=== PATIENT | female | born 1995 | race Caucasian/White ===

== ENCOUNTER → 2018-07-22 17:04 | Observation (INO) ==
--- NOTE | 2018-07-22 17:03 | OB/GYN Progress Note ---
Date of Encounter: 07/22/18 Time of Encounter: 16:58 - Assessment and Plan (1) 38 weeks gestation of Current Visit: Yes Status: Acute (2) Uterine contractions Current Visit: Yes Status: Acute No change on serial cervical exams over 4 hours. Discharged home with labor and when to return to triage precautions. Patient verbalizes understanding and in agreement with plan Subjective - Subjective Interval history: 38+0 weeks gestation presents to triage for complaints of contractions. Patient states she began having contractions at 6:00 this morning increasing in intensity came to triage for evaluation. Reports good movement, denies vaginal bleeding or leaking of fluid. Antepartum ROS: movement normal, contractions, no loss of fluid, no vaginal bleeding Objective - Vital Signs Vital Signs: Intake and Output 07/22/18 07/22/18 07/22/18 07:59 15:59 23:59 Other: Weight 75.705 kg Patient Weight 07/22/18 23:59 Weight 75.705 kg - Exam FHR: auscultation normal FHR comments: Baseline 120 Abdomen: Present: soft, gravid Cervical dilation: /-2
== END | disposition home or self-care (01) ==
LOC: 1NENULAB
PROVIDERS: ADMIT Advanced Practice Midwife; ATTEND Advanced Practice Midwife

== ENCOUNTER 2018-07-28 22:38 | Inpatient (IN) ==
[2018-07-28] MEDS ORDERED: *HR* Nalbuphine 10 MG/ML AMPUL IVP PRN (22:44)
[2018-07-28] MEDS ORDERED: Famotidine 20 MG/2 ML VIAL IVP PRN (22:44)
[2018-07-28] MEDS ORDERED: Ondansetron 4 MG/2 ML VIAL IVP PRN (22:44)
[2018-07-28] MEDS ORDERED: Metoclopramide 10 MG/2 ML VIAL IVP PRN (22:44)
[2018-07-28] MEDS ORDERED: Lidocaine 1% 20 ML MDV INFILT PRN (22:44)
[2018-07-28] MEDS ORDERED: Naloxone 0.4 MG/ML INJ IVP PRN (22:44)
[2018-07-28] MEDS ORDERED: Ringers Solution, Lactated 1,000 ML IVC SCH (22:45)
[2018-07-28] MEDS ORDERED: Oxytocin 20 units/ LR 1000 mL 20 UNIT/1,000 ML BAG IVC SCH (22:45)
[2018-07-28 23:22] LABS: Basophils % 0.4 %; Eosinophils % 0.1 %; Hematocrit 30.2 % (35.3-44.9); Hemoglobin 9.5 g/dL (11.5-15.4); Immature Granulocytes % 0.3 % (0-4); Lymphocytes % 24.4 %; Mean Corpuscular HGB Conc 31.5 g/dL (31.6-35.5); Mean Corpuscular Hemoglobin 24.3 pg (28.0-33.3); Mean Corpuscular Volume 77.2 fL (83.0-100.0); Mean Platelet Volume 10.9 fL (9.4-12.4); Monocytes # 0.5 K/mcL (0.0-1.3); Monocytes % 6.4 %; Neutrophils # 5.5 K/mcL (1.6-8.9); Platelet Count 227 K/mcL (140-400); Red Blood Count 3.91 M/mcL (3.82-4.97); Red Cell Distribution Width 14.3 % (11.5-14.5); Segmented Neutrophils % 68.4 %
[2018-07-28 23:31] LABS: Amphetamine Screen,Urine Negative ng/mL (Cutoff=1000); Barbiturate Screen,Urine Negative ng/mL (Cutoff=200); Benzodiazepines Screen,Urine Negative ng/mL (Cutoff=200); Cannabinoid Screen,Urine Negative ng/mL (Cutoff = 50); Cocaine Screen,Urine Negative ng/mL (Cutoff= 300); Opiate Screen,Urine Negative ng/mL (Cutoff=300); Phencyclidine Screen,Urine Negative ng/mL (Cutoff=25)
--- NOTE | 2018-07-29 00:36 | OB/GYN History & Physical ---
Date of Encounter: 07/29/18 Time of Encounter: 00:34 Assessment and Plan (1) 39 weeks gestation of Current visit: Yes Status: Acute (2) Anemia affecting in third trimester Current visit: Yes Status: Acute (3) Encounter for planned induction of labor Current visit: Yes Status: Acute Pitocin induction underway. Epidural when desires. EFM in anticipation of vaginal delivery History of Present Illness HPI: Ms. Tse is a 23 year old female G 3 P 2-0-0-2 at 39 0/7 weeks admitted for induction of labor at term. She denies any contractions, vaginal bleeding, or leaking fluid. She reports good movement. Her is without complications Past Med Surg Social Fam HX - Past Medical History Source: patient Medical history: no medical history Psychiatric history: no psych history - Past Surgical History Surgical History: other Additional surgical history: wisdom teeth extraction - Social History Smoking Status: Never smoker Smokeless Tobacco Status: No Alcohol use: none Drug use: none Current living situation: Home - Independent - Family History Mother Living Status: Still Living Hx Family Cardiac Disorders: No Hx Family Respiratory Disorders: No Hx Family Cancer: Yes Hx Family GI Disorders: No Hx Family Genitourinary Disorders: No Hx Family Endocrine Disorder: No Hx Family Musculoskeletal Disorders: No Hx Family Neuromuscular Disorders: No Hx Family Neurologic Disorders: No Hx Family HEENT Disorders: No Hx Family Autoimmune Disorders: No Hx Family Reproductive Disorders: No Hx Family Psychosocial Disorders: No Hx Family Medical Disorders: No Obstetrical History - Pregnancies : 3 Para: 2 Term: 2 : 0 Ab's: 0 Livin Medications and Allergies Vit/Iron Fumarate/FA [ Tablet] 1 each PO DAILY #30 tablet 08/06/16 [Rx] Allergy/AdvReac Type Severity Reaction Status Date / Time No Known Allergies Allergy Verified 07/28/18 23:23 Review of System OB All systems PM: reviewed and no additional remarkable complaints except as stated - Constitutional Constitutional ROS IM: no chills, no fatigue, no fever(s) - Gastrointestinal Gastrointestinal: no nausea, no vomiting - Menstruation Menstruation: amenorrhea Exam - Constitutional Constitutional: well developed, well nourished, no acute distress, average body habitus - HEENT HEENT: EOMI - Lungs Respiratory exam: CTAB - Cardiovascular Cardiovascular exam: RRR - Abdomen Abdomen: Present: bowel sounds normal, gravid, non tender - Vulva Vulva: bilateral: normal - Cervix Dilation: 3 Effacement: 70 Station: -3 - Comments Comments: Eitan's 6.5 lbs and cephalic presentation Results Result Diagrams: 07/28/18 23:00 Abnormal lab results Hgb 9.5 g/dL (11.5-15.4) L 07/28/18 23:00 Hct 30.2 % (35.3-44.9) L 07/28/18 23:00 MCV 77.2 fL (83.0-100.0) L 07/28/18 23:00 MCH 24.3 pg (28.0-33.3) L 07/28/18 23:00 MCHC 31.5 g/dL (31.6-35.5) L 07/28/18 23:00 All other labs normal. - VTE Reasons for not Prescribing Prophylaxis: Treatment not Indicated - Low risk for VTE
--- NOTE | 2018-07-29 01:37 | OB Labor Progress Note ---
Date of Encounter: 07/29/18 Time of Encounter: 01:35 Labor Progress Note - Subjective Subjective: Patient is getting more uncomfortable with the contractions. - Cervix Cervix: 4/70/-3 - Heart Tones Heart Tones: 127 baseline, category 1 - [place]: q 3-4 minutes - Interventions Interventions: AROM with clear fluid - Plan Plan: Continue with pitocin induction
[2018-07-29] MEDS ORDERED: Epidural Premix (fent/bupiv) 110 ML EP ONE (02:28)
[2018-07-29] MEDS ORDERED: *HR* FentaNYL (PF) 100 MCG/2 ML VIAL ONE (02:30)
[2018-07-29] MEDS ORDERED: *HR* Ropivacaine/PF 0.2% 20 ML VIAL ONE (02:31)
--- NOTE | 2018-07-29 02:58 | Anesthesia Evaluation PreOp ---
Date of Encounter: 07/29/18 Time of Encounter: 02:56 - Past History Planned Operation: tameka Cardiac History: Denies any Significant Hx Pulmonary History: Denies Any Significant HX MANAGER PRODUCT History: Denies Any Significant HX Other Medical History: Denies Any Significant HX Anesthesia History: No Prior Anesthetic Complications : Yes (39 weeks, ) Alcohol Use: none Drug use: none Medications and Allergies Vit/Iron Fumarate/FA [ Tablet] 1 each PO DAILY #30 tablet 08/06/16 [Rx] Allergy/AdvReac Type Severity Reaction Status Date / Time No Known Allergies Allergy Verified 07/28/18 23:23 - Meds/Allergy Pre-op Review Medications Reviewed: Yes Allergies Reviewed: Yes Beta Blockers on Current Med List: No Anesthesia Results - Labs 07/28/18 23:00 Anesthesia Exam O2 Sat Height 1.63 m Weight 74.5 kg Height: 64 Weight: 74 - HEENT Pupil (Motor): Pupils equal Mallampati: II Teeth: Normal Oral Opening: Greater than 3 - MANAGER PRODUCT LOC: Oriented MANAGER PRODUCT Motor: Normal RUE, Normal LUE, Normal RLE, Normal LLE, Normal Face MANAGER PRODUCT Sensory: Normal: RUE, LUE, RLE, LLE, Face - Cardiac Rhythm: Regular Murmur: None JVD: No Carotid Bruit: No - Pulmonary Breath Sounds: bilateral Clear Respiratory Effort: Symmetrical Anesthesia Assess/Plan ASA Score: 2 Level of consciousness: Cooperative Anesthetic Plan: Epidural Monitoring Plan: Standard Monitors Recovery Plan: PACU
[2018-07-29] MEDS ORDERED: Epidural Premix (fent/bupiv) 110 ML EP SCH (03:00)
--- NOTE | 2018-07-29 03:04 | Anesthesia Procedures ---
Date of Encounter: 07/29/18 Time of Encounter: 03:00 Procedures: Anesthesia - Epidural/Spinal Patient ID/Chart reviewed: Yes Patient examined: Yes OB Eval: Contractions: Non-stressed pattern Consent Obtained: Yes Supplemental Oxygen: None/Room Air Site Prep: Aseptic Technique Patient position: upright Local Anesthetic: Lidocaine 1% Amount of Local Anesthetic used: 3 Touhy Needle Gauge: 18 Touhy Needle Depth (cm): 4 Catheter Depth at Skin (cm): 10 Test Dose (1.5% Lido + Epi): Volume given (mls): 3 Test Dose Result: Negative Loading Dose: Fentanyl (mcg): 100 Loading Dose: Other: 7ml 0.2% ropivicaine Loading Dose Administered: Thru Touhy Needle Infusion Med: 0.125% Bupivacaine w/ 2 mcg/ml Fentanyl Infusion Rate (mls/hr): [address]: Tegaderm Interspace Used: L3-L4 Loss of Resistance (TUYET): Yes Blood: No CSF: No Paresthesia: No Procedure: strict asepsis, one attempt, good TUYET, no parasthesias, no heme, no CSF. FHR unchanged, VS per RN
--- NOTE | 2018-07-29 06:52 | OB/GYN Procedure Note ---
Delivery - Delivery Date: 07/29/18 Provider: Arcelia Akins Intrapartum events: none Delivery induction: AROM Delivery monitor: external FHT, external uterine Anesthesia: epidural Quantitated Blood Loss: 300 - Infant (s) Infant A Delivery Date: 07/29/18 Infant Delivery Time: 06:16 Presentation: vertex Position: DENEEN Route of delivery: Gender: Male Viability: Viable Pounds: 6 Ounces: 13 Weight Gram: 3.09 kg at 1 minute: 8 at 5 mins: 9 Shoulder Dystocia: not encountered Specimens collected: cord blood Placenta: spontaneous Cord: 3 umbilical vessels - Repair Episiotomy: none Laceration Description: None - Complications Delivery complications: none Delivery comments: Called to room with patient complete and +2 station. Under maternal effort she delivered a viable male weighing 6 lbs. 13 oz. and Apgars 8 and 9 at one and 5 minutes respectively were intact perineum. Following delivery of the head, there is no nuchal cord or shoulder dystocia encountered. The remainder the delivered with maternal effort. was placed on mom's abdomen and cord was allowed to cease pulsations. The umbillical cord was double clamped and cut with assistance from the father. Placenta delivered spontaneously, complete, and intact with a three-vessel cord. There were no vaginal, perineal, or labial lacerations on exam. Mother and recovering in the LDR in stable conditio n.. - Disposition Mom disposition: stable in LDR disposition: stable in LDR
[2018-07-29] MEDS ORDERED: Oxytocin 20 units/ LR 1000 mL 20 UNIT/1,000 ML BAG IVC SCH (09:12)
[2018-07-29] MEDS ORDERED: Oxytocin 20 units/ LR 1000 mL 20 UNIT/1,000 ML BAG IVC ONE (09:12)
[2018-07-29] MEDS ORDERED: Measles/Mumps/Rubella Vacc 0.5 ML VIAL SQ PRN (09:12)
[2018-07-29] MEDS: Prenatal Vit/FA 1 EACH TABLET PO SCH (10:15)
[2018-07-29] MEDS: Acetaminophen 325 MG TABLET PO PRN ×2 (10:15→23:47)
[2018-07-29] MEDS: Ibuprofen 600 MG TABLET PO PRN (19:48)
[2018-07-30] MEDS: Ibuprofen 600 MG TABLET PO PRN (07:52)
[2018-07-30] MEDS: Prenatal Vit/FA 1 EACH TABLET PO SCH (07:53)
[2018-07-30 08:19] VITALS: BP 114/74
--- NOTE | 2018-07-30 11:50 | Discharge Summary ---
Date of Encounter: 07/30/18 Time of Encounter: 11:47 - Discharge Diagnosis (1) Vaginal delivery Priority: Primary Status: Acute Comments: Feeling well Tolerating regular diet Pain well-controlled with by mouth pain meds Ambulating independently Voiding independently Lochia light Passing flatus, no BM yet Vital signs stable Discharge to guest today (2) Breast feeding status of mother Priority: Secondary Status: Acute Comments: Community resources provided (3) Acute blood loss anemia Priority: Secondary Status: Acute Comments: Continue iron supplementation daily - Discharge Medications Prescriptions: New Ferrous Sulfate 325 mg PO DAILY #30 tablet Acetaminophen [Tylenol] 650 mg PO Q6HR PRN tablet PRN Reason: Mild Pain Ibuprofen [Motrin] 600 mg PO Q6HR PRN #30 tablet PRN Reason: Cramping Docusate [Colace] 100 mg PO BID #30 capsule Continued Vit/Iron Fumarate/FA [ Tablet] 1 each PO DAILY #30 tablet Home Medications: Vit/Iron Fumarate/FA [ Tablet] 1 each PO DAILY #30 tablet 08/06/16 [Rx] Acetaminophen [Tylenol] 650 mg PO Q6HR PRN tablet 07/30/18 [Rx] Docusate [Colace] 100 mg PO BID #30 capsule 07/30/18 [Rx] Ferrous Sulfate 325 mg PO DAILY #30 tablet 07/30/18 [Rx] Ibuprofen [Motrin] 600 mg PO Q6HR PRN #30 tablet 07/30/18 [Rx] Allergies/Adverse Reactions: Allergy/AdvReac Type Severity Reaction Status Date / Time No Known Allergies Allergy Verified 07/28/18 23:23 Data Procedures and tests throughout hospitalization: Laboratory Tests 07/28/18 07/28/18 23:00 23:00 WBC 8.0 RBC 3.91 Hgb 9.5 L Hct 30.2 L MCV 77.2 L MCH 24.3 L MCHC 31.5 L RDW 14.3 Plt Count 227 MPV 10.9 Immature Gran % 0.3 Seg Neutrophils % 68.4 Lymphocytes % 24.4 Monocytes % 6.4 Eosinophils % 0.1 Basophils % 0.4 Neutrophils # 5.5 Lymphocytes # 2.0 Monocytes # 0.5 Eosinophils # 0.0 Basophils # 0.0 Urine Opiates Screen Negative Ur Barbiturates Screen Negative Ur Phencyclidine Scrn Negative Ur Amphetamines Screen Negative U Benzodiazepines Scrn Negative Urine Cocaine Screen Negative U Marijuana (THC) Screen Negative Ur Drug Screen Interp See Below Date of admission: 07/28/18 22:38 Primary care physician: PCP NONE Consults: 07/29/18 09:12 Consult to [facility] [place] [CONS] Routine Comment: Vaginal delivery, consult needed Discharging clinician: Tiffany Mak Anticipated date of discharge: 07/30/18 - Patient Status Disposition: Home, Self-Care Condition: Good Functional capacity at discharge: independent ambulation Overall status at discharge: patient is progressing back to baseline - Discharge Instructions Follow Up With: NONE,PCP [Primary Care Provider] - Arcelia Akins DO [Partnered Physician] - - Diet and Activity Activity: increase activity as tolerated Diet: regular diet Hospital Course Reason for admission: induction of labor, IUP at term Delivery: Episiotomy: none Laceration: none Other procedures: none complications: none Discharge diagnosis: IUP at term delivered baby: male Time Attestation: Total time spent providing and/or coordinating discharge services: Time Spent: Less than 30 minutes Exam - Constitutional Vitals: Temp Pulse Resp BP Pulse Ox 97.1 F L 58 16 114/74 100 07/30/18 08:18 07/30/18 08:18 07/30/18 08:18 07/30/18 08:18 07/29/18 19:45 General appearance IM: A&O X 3, pleasant, no acute distress, answers questions appropriately - Respiratory Respiratory exam: Present: CTAB - Cardiovascular Cardiovascular exam IM: Present: RRR, +S1, +S2 - GI/Abdominal GI/Abdominal exam IM: normal bowel sounds, no peritoneal signs - Rectal Rectal exam: deferred - Uterine Tone: Firm Uterus Position: 2 Fingers Below Umbilicus, Midline - Extremities Exam Extremities exam IM: Present: full ROM, normal capillary refill, normal inspection, radial pulses palpable and symmetrical - Neurological Exam Neurological exam: alert, CN II-XII intact, normal gait, oriented X3, reflexes normal, no focal deficits, strengths equal and symetr throughout - Psychiatric Additional comments: Signs and symptoms of depression discussed with patient and she verbalizes understanding of when to seek help
== END 2018-07-30 16:10 | disposition home or self-care (01) | DRG 806 ==
LOC: 1NENULAB 22:38 → 1NENUOBS 07-29 09:13
PROVIDERS: ADMIT Obstetrics & Gynecology; ATTEND Obstetrics & Gynecology

== ENCOUNTER 2019-09-01 08:00 | Inpatient (IN) ==
[2019-09-01] MEDS ORDERED: Oxytocin 20 units/ LR 1000 mL 20 UNIT/1,000 ML BAG IVC SCH ×2 (09:15→18:40)
[2019-09-01] MEDS ORDERED: Famotidine 20 MG/2 ML VIAL IVP PRN (09:15)
[2019-09-01] MEDS ORDERED: Metoclopramide 10 MG/2 ML VIAL IVP PRN (09:15)
[2019-09-01] MEDS ORDERED: Naloxone 0.4 MG/ML INJ IVP PRN (09:15)
[2019-09-01 10:07] LABS: Basophils % 0.5 %; Eosinophils % 0.3 %; Hematocrit 31.2 % (35.3-44.9); Hemoglobin 9.1 g/dL (11.5-15.4); Immature Granulocytes % 0.7 % (0-4); Lymphocytes # 1.7 K/mcL (0.6-4.6); Lymphocytes % 21.8 %; Mean Corpuscular HGB Conc 29.2 g/dL (31.6-35.5); Mean Corpuscular Hemoglobin 21.7 pg (28.0-33.3); Mean Corpuscular Volume 74.5 fL (83.0-100.0); Mean Platelet Volume 10.7 fL (9.4-12.4); Monocytes # 0.4 K/mcL (0.0-1.3); Neutrophils # 5.5 K/mcL (1.6-8.9); Platelet Count 235 K/mcL (140-400); Red Blood Count 4.19 M/mcL (3.82-4.97); Red Cell Distribution Width 16.5 % (11.5-14.5); Segmented Neutrophils % 71.7 %; White Blood Count 7.6 K/mcL (4.3-11.1)
[2019-09-01] MEDS: Ringers Solution, Lactated 1,000 ML IVC SCH ×2 (10:08→13:52)
[2019-09-01 10:16] LABS: Amphetamine Screen,Urine Negative ng/mL (Cutoff=1000); Barbiturate Screen,Urine Negative ng/mL (Cutoff=200); Benzodiazepines Screen,Urine Negative ng/mL (Cutoff=200); Cannabinoid Screen,Urine Negative ng/mL (Cutoff = 50); Cocaine Screen,Urine Negative ng/mL (Cutoff= 300); Opiate Screen,Urine Negative ng/mL (Cutoff=300); Phencyclidine Screen,Urine Negative ng/mL (Cutoff=25)
[2019-09-01] MEDS ORDERED: EPHEDrine 50 MG/ML VIAL IVP PRN (11:00)
[2019-09-01] MEDS ORDERED: Epidural Premix (fent/bupiv) 110 ML EP SCH (11:00)
[2019-09-01] MEDS ORDERED: Bupivacaine-MPF 0.25% 10 ML VIAL EP ONE (11:00)
[2019-09-01] MEDS ORDERED: *HR* FentaNYL (PF) 100 MCG/2 ML VIAL EP ONE (11:00)
[2019-09-01] MEDS ORDERED: *HR* FentaNYL (PF) 100 MCG/2 ML VIAL ONE (11:03)
[2019-09-01] MEDS ORDERED: Bupivacaine-MPF 0.25% 10 ML VIAL ONE (11:03)
[2019-09-01] MEDS ORDERED: Ondansetron 4 MG/2 ML VIAL IVP SCH ×2 (14:49→18:00)
[2019-09-01] MEDS ORDERED: Acetaminophen 325 MG TABLET PO PRN (18:40)
[2019-09-01] MEDS ORDERED: Measles/Mumps/Rubella Vacc 0.5 ML VIAL SQ PRN (18:40)
[2019-09-01] MEDS ORDERED: Oxytocin 20 units/ LR 1000 mL 20 UNIT/1,000 ML BAG IVC ONE (18:40)
[2019-09-01] MEDS: Ibuprofen 600 MG TABLET PO PRN (18:59)
[2019-09-02] MEDS: Ibuprofen 600 MG TABLET PO PRN ×2 (07:05→17:44)
[2019-09-02 08:04] LABS: Hemoglobin 7.6 g/dL (11.5-15.4); Immature Granulocytes % 0.5 % (0-4); Lymphocytes % 20.7 %; Mean Corpuscular HGB Conc 29.2 g/dL (31.6-35.5); Mean Corpuscular Volume 75.4 fL (83.0-100.0); Mean Platelet Volume 10.7 fL (9.4-12.4); Platelet Count 201 K/mcL (140-400); Red Blood Count 3.45 M/mcL (3.82-4.97); Red Cell Distribution Width 16.5 % (11.5-14.5); Segmented Neutrophils % 70.4 %
[2019-09-02 08:05] LABS: Basophils % 0.4 %; Eosinophils % 0.5 %; Lymphocytes # 1.7 K/mcL (0.6-4.6); Monocytes # 0.6 K/mcL (0.0-1.3); Monocytes % 7.5 %; Neutrophils # 5.6 K/mcL (1.6-8.9)
[2019-09-02] MEDS ORDERED: Prenatal Vit/FA 1 EACH TABLET PO SCH (09:00)
[2019-09-02 14:51] VITALS: BP 112/72
== END 2019-09-02 15:00 | disposition home or self-care (01) | DRG 807 ==
LOC: 1NENULAB 08:19 → 1NENUOBS 19:53
PROVIDERS: ADMIT Obstetrics & Gynecology; ATTEND Obstetrics & Gynecology